=== PATIENT | male | born 1990 | race Asian ===

== ENCOUNTER 2021-07-19 22:14 | Emergency (ER) | payer SELFPAY ==
[~2021-07-19] VITALS: Ht 170.2 cm; Wt 95.5 kg
[~2021-07-19 22:14] MED LIST: NORCO 325 MG-51 TAB PO; PERCOCET 325 MG1 TA2 PO; ZOFRAN ODT4 MG PO
[2021-07-19 22:22] VITALS: TEMP 98.2
[2021-07-19] MEDS ORDERED: ULTRAM 50MG TAB50 MG PO (22:53)
[2021-07-20] MEDS ORDERED: ZOFRAN ODT4 MG PO (01:35)
[2021-07-20] MEDS ORDERED: NORCO 325 MG-51 TAB PO (01:35)
[2021-07-20 01:46] VITALS: BP 142/70; PULSE 76
== END 2021-07-20 01:46 | disposition home or self-care (01) ==
LOC: COL.ER 22:14
DX: N20.0 Calculus of kidney (principal)
CPT/HCPCS: J1170; J1885